=== PATIENT | female | born 1990 | race Two or more races ===

== ENCOUNTER 2024-02-12 15:19 | Outpatient (CLI) | payer OTHER | END 2024-02-12 15:25 | disposition home or self-care (01) | LOC: LAB 15:19 | PROVIDERS: ATTEND Specialist | DX: L02.91 Cutaneous abscess, unspecified (principal) ==

== ENCOUNTER 2024-07-05 09:41 | Outpatient (CLI) | payer OTHER | END 2024-07-05 11:06 | disposition home or self-care (01) | LOC: NST 09:41 | PROVIDERS: ATTEND Obstetrics & Gynecology Gynecology | DX: Z34.83 Encounter for supervision of other normal pregnancy, third trimester (principal) ==

== ENCOUNTER 2024-07-28 17:17 | Outpatient (CLI) | payer OTHER | END 2024-07-28 17:59 | disposition home or self-care (01) | LOC: NST 17:17 | PROVIDERS: ATTEND Obstetrics & Gynecology | DX: Z34.83 Encounter for supervision of other normal pregnancy, third trimester (principal) ==

== ENCOUNTER 2024-08-06 13:02 | Outpatient (CLI) | payer OTHER | END 2024-08-06 13:41 | disposition home or self-care (01) | LOC: NST 13:02 | PROVIDERS: ATTEND Obstetrics & Gynecology | DX: Z3A.38 38 weeks gestation of pregnancy (principal) ==

== ENCOUNTER 2024-08-06 13:15 | Inpatient (IN) | payer OTHER ==
[~2024-08-06] VITALS: Ht 170.2 cm; Wt 76.7 kg
[2024-08-11] VITALS (9 sets, daily range): BP systolic 92–123; BP diastolic 67–78
[2024-08-11] MEDS ORDERED: PRENATAL MULTI1 EAC3 PO (06:11)
[2024-08-11] MEDS ORDERED: ADULT ASPIRIN81 MG PO (06:11)
[2024-08-11] MEDS ORDERED: VITAMIN D-40010 MCG (06:12)
[2024-08-11] MEDS ORDERED: RINGERS SOLUTION,LACTATED 1,000 ML IV SCH (06:30)
[2024-08-11] MEDS ORDERED: OXYTOCIN 20 UNITS/500ML RL PIGGYBAG IV ONE (07:08)
[2024-08-11 07:12] LABS: HEMATOCRIT 37.5 % (36.0-45.00); HEMOGLOBIN 12.6 g/dL (12.0-15.00); MEAN CELL VOLUME 94.7 fL (80.00-100.00); MEAN CORPUSCULAR HEMOGLOBIN 31.9 pg (27.00-32.0); MEAN CORPUSCULAR HGB CONC 33.6 g/dl (32.0-36.0); PLATELET COUNT 181 K/uL (150-450); RED BLOOD COUNT 3.96 M/uL (4.00-6.00); RED CELL DISTRIBUTION WIDTH 13.4 % (11.5-14.5)
[2024-08-11 07:25] LABS: URINE BILIRRUBIN NEGATIVE (NEGATIVE); URINE BLOOD TRACE; URINE GLUCOSE NEGATIVE (NEGATIVE); URINE KETONE NEGATIVE (NEGATIVE); URINE LEUKOCYTE NEGATIVE; URINE NITRATE NEGATIVE; URINE PROTEIN NEGATIVE (NEGATIVE); URINE UROBILINOGEN 0.2 E.U./dl
[2024-08-11 07:33] LABS: INR 0.95; PARTIAL THROMBOPLASTIN TIME 24.2 SECONDS (22.0-34.0); PROTHROMBIN TIME 10.4 SECONDS (9.0-11.5)
[2024-08-11] MEDS ORDERED: OXYTOCIN 500 ML IV ONE (07:45)
[2024-08-11 08:02] LABS: ALBUMIN 2.7 gm/dL (3.4-5.0); BILIRUBIN TOTAL 0.47 mg/dL (0.3-1.2); CALCIUM 9.3 mg/dL (8.5-10.1); CREATININE SERUM 0.61 mg/dL (0.55-1.02); GFR 111.61; GLOBULINA 3.6 G/DL (2.4-3.5); POTASSIUM 4.27 mEq/L (3.5-5.1); TOTAL PROTEIN 6.3 gm/dL (6.4-8.2)
[2024-08-11 08:06] LABS: URINE APPEARANCE CLEAR; URINE BACTERIA FEW; URINE COLOR YELLOW; URINE CRYSTALS FEW /HPF; URINE EPITHELIAL CELLS 0-4 /HPF; URINE MUCUS NEGATIVE
[2024-08-11] MEDS ORDERED: OXYTOCIN 20 UNITS/1000ML RL PIGGYBAG IV ONE (10:10)
[2024-08-11] MEDS ORDERED: ERYTHROMYCIN BASE OPHT 1GM EACH TUBE OP ONE ×2 (10:10→13:30)
[2024-08-11] MEDS ORDERED: LIDOCAINE HCL 1% 10ML VIAL ONE (10:11)
[2024-08-11] MEDS ORDERED: CHLORHEXIDINE GLUCONATE 120 ML BOTTLE TOP ONE ×2 (10:11→13:30)
[2024-08-11] MEDS ORDERED: MORPHINE SULFATE 4 MG/ML VIAL IV ONE (11:30)
[2024-08-11] MEDS ORDERED: LIDOCAINE HCL 1% 10ML VIAL IJ ONE (13:30)
[2024-08-11] MEDS ORDERED: OXYTOCIN 1,000 ML IV SCH ×2 (13:30→13:45)
[2024-08-11] MEDS ORDERED: IBUprofen 400 MG TABLET PO PRN (13:45)
[2024-08-11] MEDS ORDERED: CHLORHEXIDINE GLUCONATE 120 ML BOTTLE TOP SCH (13:45)
[2024-08-11] MEDS ORDERED: KETOROLAC TROMETHAMINE 30 MG VIAL IV ONE (15:30)
[2024-08-11] MEDS ORDERED: MORPHINE SULFATE 4 MG/ML CARTRIDGE IV ONE (15:30)
[2024-08-11] MEDS ORDERED: KETOROLAC TROMETHAMINE 30 MG VIAL ONE (15:38)
[2024-08-11] MEDS ORDERED: HYDROCORTISONE 2.5% 20 GM TUBE RECTAL SCH (17:00)
[2024-08-11] MEDS ORDERED: BENZOCAINE/MENTHOL 90 ML BOTTLE TOP SCH (17:00)
[2024-08-11] MEDS ORDERED: KETOROLAC TROMETHAMINE 30 MG VIAL IV PRN (17:15)
[2024-08-11] MEDS ORDERED: MORPHINE SULFATE 4 MG/ML CARTRIDGE IV PRN (17:15)
[2024-08-11 17:57] LABS: HEMATOCRIT 35.8 % (36.0-45.00); HEMOGLOBIN 12.2 g/dL (12.0-15.00); MEAN CELL VOLUME 94.1 fL (80.00-100.00); MEAN CORPUSCULAR HEMOGLOBIN 32.1 pg (27.00-32.0); MEAN CORPUSCULAR HGB CONC 34.1 g/dl (32.0-36.0); PLATELET COUNT 178 K/uL (150-450); RED BLOOD COUNT 3.81 M/uL (4.00-6.00); RED CELL DISTRIBUTION WIDTH 13.7 % (11.5-14.5)
[2024-08-12] VITALS: BP 99/63
[2024-08-12 04:26] LABS: HEMATOCRIT 29.4 % (36.0-45.00); HEMOGLOBIN 10.2 g/dL (12.0-15.00); MEAN CELL VOLUME 92.7 fL (80.00-100.00); MEAN CORPUSCULAR HEMOGLOBIN 32.3 pg (27.00-32.0); MEAN CORPUSCULAR HGB CONC 34.9 g/dl (32.0-36.0); PLATELET COUNT 162 K/uL (150-450); RED BLOOD COUNT 3.17 M/uL (4.00-6.00)
[2024-08-12] MEDS ORDERED: KETOROLAC TROMETHAMINE 10 MG TABLET PO PRN (08:15)
[2024-08-12 08:29] VITALS: BP 106/73
[2024-08-12 16:16] VITALS: BP 105/73
[2024-08-12 16:24] VITALS: BP 105/73
[2024-08-13 01:03] VITALS: BP 113/73
[2024-08-13 08:30] VITALS: BP 111/75
== END 2024-08-13 11:20 | disposition home or self-care (01) | DRG 807 ==
LOC: LDR 08-11 06:01 → OB/GYN 08-11 13:33 → LDR 08-12 13:15 → OB/GYN 08-13 11:20
PROVIDERS: Obstetrics & Gynecology Gynecology; ADMIT Obstetrics & Gynecology; ATTEND Obstetrics & Gynecology
PROC: 10E0XZZ Delivery of Products of Conception, External Approach (ICD-10-PCS; principal; 2024-08-11)
PROC: 4A1HXCZ Monitoring of Products of Conception, Cardiac Rate, External Approach (ICD-10-PCS; 2024-08-11)
DX: O80 Encounter for full-term uncomplicated delivery (principal); Z37.0 Single live birth; Z3A.38 38 weeks gestation of pregnancy; Z20.822 Contact with and (suspected) exposure to COVID-19